=== PATIENT | male | born 1985 | race Caucasian/White ===

== ENCOUNTER 2022-12-28 18:42 | Emergency (ER) | payer OTHER, SELFPAY ==
[2022-12-28 18:44] VITALS: BP 130/84; PULSE 72; RESP 16; TEMP 36.7; O2SAT 99; BMI 28.0
--- NOTE | 2022-12-28 19:01 | RAD_ITS ---
STUDY: X-RAY - THORACIC SPINE REASON FOR EXAM: Male, 37 years old. Fell down stairs. Diffuse back pain. TECHNIQUE: 3 view(s) of the thoracic spine were obtained. COMPARISON: None. FINDINGS: Normal kyphosis of the thoracic spine. There is no substantial scoliosis. Normal thoracic vertebrae and endplates. Normal disc space heights. There is no evidence of acute fracture or loss of vertebral axial height. The soft tissue structures are unremarkable. RAD/Thoracic Spine 3 Views IMPRESSION: Normal x-ray examination of the thoracic spine. Electronically Signed: Nehemiah Lunsford DO at 19:37 EST ,
[2022-12-28] MEDS: Morphine 4 MG/ML Syringe IV (19:05)
[2022-12-28] MEDS: Ondansetron 4 MG/2 ML Vial IV (19:05)
--- NOTE | 2022-12-28 19:14 | EDS_ITS ---
HPI <SARAH Jiang - Last Filed: 12/28/22 19:55> History of Present Illness Chief Complaint: Fall Narrative Narrative: Patient is a 37-year-old male with no significant medical history presents to the emergency department after mechanical fall striking his back on some steps. Patient states his was cleaning the steps, he slipped falling landing on his right lower back, going down 3 steps. This happened approximate 2 PM today. Patient is while he lays on his stomach, he did not have any pain. However today he had difficulty getting up, worsening pain so he is here for evaluation. He denies any head or neck injury. He states that when he is completely still he has no pain. PFSH <SARAH Jiang - Last Filed: 12/28/22 19:55> [facility] Medical History no medical history Home Medications cyclobenzaprine 10 mg tablet 10 mg PO TID PRN Muscle Spasm #12 TABLETS 12/28/22 [Rx Last Taken Unknown] naproxen 500 mg tablet 500 mg PO BID #20 tabs 12/28/22 [Rx Last Taken Unknown] Allergy/AdvReac Type Severity Reaction Status Date / Time No Known Allergies Allergy Verified 12/28/22 18:55 Family History no significant family his Surgical History no surgical history Social History Smoking Status: Never smoker ROS <SARAH Jiang - Last Filed: 12/28/22 19:55> ROS ED ROS Narrative Constitutional: Negative for fever, chills, weight loss, weakness Eyes: Negative for vision loss, vision change, double vision ENT: Negative for any sore throat, ear pain, congestion Cardiovascular: Negative for any chest pain, tightness, palpitations Respiratory: Negative for any cough, sputum production, hemoptysis, dyspnea, dyspnea on exertion, orthopnea Gastrointestinal: Negative for any abdominal pain, nausea, vomiting, diarrhea, constipation, blood in stool, blood in vomit : Negative for any urinary frequency, dysuria, retention, blood in urine Muscle skeletal: Negative for any muscle joint pain, stiffness, myalgias, arthralgias, neck pain. Positive for lower back pain Neurological: Negative for any headache, syncope, numbness or tingling, dizziness Skin: Negative for any rashes, lumps, itching, abrasions, lacerations Psychiatric: Negative for any depression, anxiety, stress, suicidal ideation, homicidal ideation Hematologic: Negative for any easy bruising, excessive bruising, easy bleeding Allergies: Negative for any eczema, hives, rash EXAM <SARAH Jiang - Last Filed: 12/28/22 19:55> Physical Exam Narrative Exam Narrative: Vital signs reviewed. HEET: Head normocephalic atraumatic, TMs clear bilaterally. Posterior pharynx is clear, moist mucous membranes. Nares clear bilaterally. Neck: Supple with no lymphadenopathy or tenderness. No signs of meningismus, negative jolt sign. Cardiac: Regular rate and rhythm no murmurs gallops or rubs, equal peripheral pulses bilaterally. Respiratory: Lungs clear to auscultation bilaterally. No chest tenderness. Abdomen: Soft, nontender, nondistended. No abdominal bruit or pulsatile masses. No hepatosplenomegaly Extremities: No peripheral edema, no signs of gross trauma or deformity. Active full range of motion of all extremities. Neuro: Cranial nerves II through XII intact, no focal neurological deficits. Skin: Clean dry and intact with no rash, purpura, petechiae, vesicles or pustules. Backs/flank: No CVA tenderness, no midline spinal tenderness, no deformity. Patient has slight edema to the right lower lumbar spine. Minimal for any midline spinal spinal tenderness. This does not radiate to his flank. There is no deformity. Patient has full range of motion of the lower legs. Negative for any neurological focal deficit. There is no open skin. No other injury noted Psych: Normal mood and affect. No SI, HI or acute psychosis. Const Vital Signs: 12/28/22 18:44 12/28/22 18:47 12/28/22 20:12 Temperature 98.1 F Temperature Source Oral Pulse Rate 72 68 Respiratory Rate 16 16 Respiratory Effort Normal Non-Labored Respiratory Depth Normal Respiratory Pattern Normal Blood Pressure 130/84 H 108/66 Blood Pressure Mean 99 Pulse Ox 99 97 Oxygen Delivery Method Room Air Positive well nourished and well developed General Appearance ED: well developed <Dusty Aburto MD - Last Filed: 12/28/22 20:56> Physical Exam Const Vital Signs: 12/28/22 18:44 12/28/22 18:47 12/28/22 20:12 Temperature 98.1 F Temperature Source Oral Pulse Rate 72 68 Respiratory Rate 16 16 Respiratory Effort Normal Non-Labored Respiratory Depth Normal Respiratory Pattern Normal Blood Pressure 130/84 H 108/66 Blood Pressure Mean 99 Pulse Ox 99 97 Oxygen Delivery Method Room Air [facility] <SARAH Jiang - Last Filed: 12/28/22 19:55> [facility] Radiography Diagnostic Testing: Clinical Impression(s) from Imaging Studies Thoracic Spine X-Ray 12/28/22 19:01 IMPRESSION: Normal x-ray examination of the thoracic spine. Electronically Signed: Nehemiah Lunsford DO at 19:37 EST Reading Location ID and State: [facility] / [place] Tel [phone], Service support , Lumbar Spine X-Ray 12/28/22 19:15 IMPRESSION: Normal x-ray examination of the lumbar spine. Electronically Signed: Nehemiah Lunsford DO at 19:37 EST Reading Location ID and State: [facility] / [employer] Tel [phone], Service support , Treatment and Re-Evaluation Narrative: All radiologic examinations were read, reviewed by the emergency department attending. From these reads, a plan of care will be put in place. Patient appears generally well, patient is in no distress. Patient presents to the emergency department with complaints of a mechanical fall striking the the right lower lumbar spine. Patient's physical examination consistent with a muscle skeletal injury. There is no evidence of any osseous abnormality. [facility] er patient did receive x-rays of the thoracic spine as well as the lumbar sacral spine. These showed no acute osseous abnormality. Consider CT scan of the lumbar spine however with a physical examination consistent with muscle skeletal pain, not believe that is necessary. The patient is young and has no big medical problems. Patient was given 4 mg of morphine, Zofran here. Differential included spinal fracture, contusion, hematoma. Patient be diagnosed with lumbar spinal contusion. He will be given naproxen as well as Flexeril for home. He will ice, perform gentle stretching. He was given return precaution. Patient stable for discharge <Dusty Aburto MD - Last Filed: 12/28/22 20:56> [facility] Narrative Medical decision making narrative: I have personally performed a face to face assessment of the patient and have reviewed the LUCIO Note. I performed a substantive portion of the visit including all aspects of the following. My chaparro findings include: History is fall down a few stairs. Back pain, mainly right lower back. Exam is GCS 15. ABCs intact. No vertebral point tenderness or bony step-off. Mild tenderness palpation right para spinal lumbar area. Medical Decision Making check x-rays. Analgesia. Discharge. Other additions or changes: [None] Radiography Diagnostic Testing: Clinical Impression(s) from Imaging Studies Thoracic Spine X-Ray 12/28/22 19:01 IMPRESSION: Normal x-ray examination of the thoracic spine. Electronically Signed: Nehemiah Lunsford DO at 19:37 EST Reading Location ID and State: [facility] [employer] / [place] Tel [phone], Service support , Lumbar Spine X-Ray 12/28/22 19:15 IMPRESSION: Normal x-ray examination of the lumbar spine. Electronically Signed: Nehemiah Lunsford DO at 19:37 EST Reading Location ID and State: [place] / [place] Tel [phone], Service support , Discharge Plan Triage Chief Complaint: Fall ED Midlevel Provider: Feliciano Castaneda ED Provider: Dusty Aburto Dx/Rx/DC Orders Clinical Impression: Lumbar back pain, Fall, Contusion Instructions: Bruises (Contusions), ED Fall with Uncertain Cause Prescriptions: New naproxen 500 mg tablet 500 mg PO BID Qty: 20 0RF cyclobenzaprine 10 mg tablet 10 mg PO TID PRN (Reason: Muscle Spasm) Qty: 12 0RF Activity Restrictions/Additional Instructions: Please follow-up with your PCP. Disposition Disposition: Home, Self Care Discharge Date/Time: 12/28/22 20:13
--- NOTE | 2022-12-28 19:15 | RAD_ITS ---
STUDY: X-RAY - LUMBAR SPINE REASON FOR EXAM: Male, 37 years old. Fall downstairs. Diffuse back pain most marked in the lower back. TECHNIQUE: 3 view(s) of the lumbar spine were obtained. COMPARISON: None FINDINGS: Normal lumbar lordosis. There is no substantial scoliosis. There is a normal alignment of the vertebrae. Normal vertebral bodies and endplates. Normal disc space heights. There is no evidence of acute fracture or loss of vertebral axial height. The soft tissue structures are unremarkable. RAD/Lumbar Spine 2 or 3 Views IMPRESSION: Normal x-ray examination of the lumbar spine. Electronically Signed: Nehemiah Lunsford DO at 19:37 EST ,
[2022-12-28 20:12] VITALS: BP 108/66; PULSE 68; RESP 16; O2SAT 97
== END 2022-12-28 20:13 | disposition home or self-care (01) ==
PROVIDERS: Emergency Provider Emergency Medicine; Visit Provider Emergency Medicine
DX: S30.0XXA Contusion of lower back and pelvis, initial encounter (principal); W10.9XXA Fall (on) (from) unspecified stairs and steps, initial encounter
CPT/HCPCS: 72072; 72100; 96374; 96375; 99284; J2405